=== PATIENT | male | born 1990 | race Caucasian/White ===

== ENCOUNTER 2024-12-26 08:05 | Day surgery (SDC) | payer MEDICAID, SELFPAY ==
[2024-12-22 09:21] VITALS: BMI 22.1
[2024-12-22 10:40] LABS: Basophils # (Auto) 0.1 Thou/mm3 (0.0-0.2); Basophils % (Auto) 1 % (0-2.5); Eosinophils # (Auto) 0.3 Thou/mm3 (0.0-0.5); Eosinophils % (Auto) 4 % (0-10); Hematocrit 41.1 % (41.0-53.0); Hemoglobin 13.8 g/dL (13.5-16.0); Immature Granulocytes Auto 0.01 Thou/mm3 (0.00-0.00); Lymphocytes # (Auto) 2.4 Thou/mm3 (1.0-4.8); Lymphocytes % (Auto) 36 % (10-50); Mean Corpuscular HGB Conc 33.6 g/dl (31.0-37.0); Mean Corpuscular Hemoglobin 31.4 pg (25.0-35.0); Mean Corpuscular Volume 93 fL (80-100); Monocytes # (Auto) 0.7 Thou/mm3 (0.0-0.8); Monocytes % (Auto) 10 % (0-12); Neutrophils # (Auto) 3.3 Thou/mm3 (1.8-7.7); Neutrophils % (Auto) 50 % (37-80); Nucleated Red Blood Cell # 0.00 Thou/mm3 (0.00-0.00); Nucleated Red Blood Cell % 0 /100 WBC (0); Platelet Count 164 Thou/mm3 (140-440); RDW Standard Deviation 45.3 fL (35.1-43.9); Red Blood Count 4.40 Miln/mm3 (4.50-5.90); White Blood Count 6.7 Thou/mm3 (3.8-10.6)
[2024-12-22 10:48] LABS: Anion Gap 6 (7-16); BUN/Creatinine Ratio 24 Ratio (12-20); Blood Urea Nitrogen 19 mg/dL (9-23); Calcium 9.4 mg/dL (8.3-10.6); Carbon Dioxide 27.6 mMol/L (20.0-31.0); Chloride 106 mMol/L (98-107); Creatinine (Component) 0.8 mg/dL (0.6-1.3); Estimated Creatinine Clearance 127.6 mL/min (>60); Glucose 84 mg/dL (74-106); Osmolality,Calculated 280 (275-295); Potassium 4.4 mMol/L (3.4-5.1); Sodium 140 mMol/L (136-145); eGFR > 60 See Note
--- NOTE | 2024-12-25 11:42 | ESHP_ITS ---
RE: MARQUIS ROJAS : 1990 DATE OF ADMISSION: 12/25/2024 HISTORY OF PRESENT ILLNESS: The patient is a 34-year-old gentleman desiring bilateral vasectomy for family planning. FAMILY HISTORY: He has 2 children. PAST SURGICAL HISTORY: He had a tonsillectomy. He had a deviated septum surgery and he had a testicular torsion at age 4-5. ALLERGIES: NONE KNOWN. PAST MEDICAL HISTORY: No history of diabetes mellitus. No history of hypertension. HOME MEDICATIONS: Includes allergy medications. PHYSICAL EXAMINATION: HEENT: Normal. NECK: Supple. LUNGS: Clear. CARDIOVASCULAR: Heart sounds are normal. ABDOMEN: Soft without any organomegaly. No guarding. No rigidity. EXTREMITIES: Normal. IMPRESSION: The patient is desiring bilateral vasectomy for family planning. PLAN: Bilateral vasectomy. Planned procedure risks and complications have been discussed with the patient. The patient has understood them and agreed to proceed. DT: 11:13:56 TT: 11:41:00 Ref: [id number] - TID: [id number]
--- NOTE | 2024-12-25 14:39 | SUR.PREOP ---
Pt notified to come in tomorrow at 0800.
[2024-12-26] VITALS (10 sets, daily range): BP systolic 95–126; BP diastolic 48–71; PULSE 49–80; RESP 12–24; TEMP 36.8–36.9; O2SAT 99–100; BMI 21.9
[2024-12-26] MEDS: RINGERS LACTATED 1000 ML 1,000 ML 20 ML IV (08:30)
--- NOTE | 2024-12-26 10:17 | SUR.PHASEI ---
1007: Pt received in [facility] via [facility]. Report from Loki HARMAN and Landon FIELDS. Pt obtunded. Oral airway in place. Resp even, unlabored. BP low. Anesthesia aware. No recommendations. Other VS stable. Dressing to scrotum dry, clean, intact.
--- NOTE | 2024-12-26 10:36 | SUR.PHASEI ---
1021: Pt awakening with eye opening. Oral airway dc'd. Resp even, unlabored. VS stable. Dressing remains dry, clean, intact. Ice pack placed at scrotum per Dr. Cano. Pt denies pain.
--- NOTE | 2024-12-26 11:09 | SUR.PHASEII ---
1100: Pt more awake, alert. VS stable. Dressing remains dry, clean, intact. Denies pain. Sitting up tolerating po fluids with no difficulty swallowing and no n/v.
--- NOTE | 2024-12-26 11:15 | ESOP_ITS ---
RE: MARQUIS ROJAS : 1990 DATE OF OPERATION: 12/26/2024 PREOPERATIVE DIAGNOSIS: The patient is desiring bilateral vasectomy for family planning. POSTOPERATIVE DIAGNOSIS: The patient is desiring bilateral vasectomy for family planning. PROCEDURE PERFORMED: Bilateral vasectomy. ANESTHESIA: General. INDICATION: The patient is a 34-year-old gentleman desiring bilateral vasectomy for family planning. Planned procedure, risks, and complications have been discussed with the patient. The patient understood them and agreed to proceed. DESCRIPTION OF PROCEDURE: After the patient was brought to the operating table under adequate general anesthesia and supine position, parts were prepped and draped in the usual fashion. The right vas deferens was made subcutaneous. A small transverse incision was then made 0.5 cm long over the vas deferens. Dissection was then carried out. A small segment of the vas deferens was from the surrounding structure. Two clamps were placed and a segment between the clamps was excised and sent for examination. The ends of the vas deferens were fulgurated and ligated using 3-0 chromic catgut sutures. Complete hemostasis was obtained. Skin wound was closed with interrupted sutures of 3-0 chromic catgut. In the similar fashion, the left-sided vasectomy was done. Local anesthetic was injected at the site of the skin. Sterile dressing was then applied. The patient was then transferred to the recovery room in satisfactory condition having tolerated the entire procedure well. Sponge count and needle count at the end of the procedure was found to be correct. Estimated blood loss was approximately 1 mL on each side. DT: 10:27:02 TT: 11:13:00 Ref: [id number] - TID: [id number]
--- NOTE | 2024-12-26 11:50 | SUR.PHASEII ---
1130: Pt fully awake, oriented x3. VS stable. Dressing clean, intact. No c/o pain. Pt dressed and assisted to transport chair. Ambulation steady. Pt and stated understanding of discharge instructions. Pt also instructed to spanish moss picker his prescription at [facility]. Pt discharged from [facility] ins table condition.
== END 2024-12-26 11:30 | disposition home or self-care (01) ==
PROVIDERS: PCP Family Medicine; Referring Provider Surgery; Visit Provider Surgery
PROC: (CPT 55250; principal; 2024-12-26 09:45)
DX: Z30.2 Encounter for sterilization (principal); Z90.89 Acquired absence of other organs
CPT/HCPCS: 55250; 36415; 80048; 85025; A4217; A4649; J0690; J0694; J1100; J2250; J2405; J2704; J3010; J3490; J7120; L8330; A9270